=== PATIENT | male | born 1995 | race Asian ===

== ENCOUNTER 2021-08-01 16:46 | Emergency (ER) | payer OTHER ==
[~2021-08-01] VITALS: Ht 188 cm; Wt 86.0 kg
[2021-08-01 16:54] VITALS: BP 150/75
[2021-08-01] MEDS ORDERED: AMOX-424 MT (17:37)
[2021-08-01] MEDS ORDERED: AMOXICILLIN/POTASSIUM CLAVULANATE 875/125MG TAB PO ONE (17:45)
[2021-08-01] MEDS ORDERED: ACETAMINOPHEN 325MG TABLET PO ONE (17:45)
[2021-08-01] MEDS ORDERED: TETANUS, DIPHTHERIA, PERTUSSIS VAC/PF 0.5ML (>10YR OLD) IM ONE (17:45)
== END 2021-08-01 18:05 | disposition home or self-care (01) ==
LOC: ER 16:46
DX: S61.250A Open bite of right index finger without damage to nail, initial encounter (principal); W54.0XXA Bitten by dog, initial encounter; Y93.89 Activity, other specified; Y92.488 Other paved roadways as the place of occurrence of the external cause
CPT/HCPCS: 90471; 90715; 99283